=== PATIENT | male | born 1950 | race Caucasian/White ===

== ENCOUNTER 2017-06-19 00:36 | Emergency (ER) | payer MEDICARE, BC ==
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
--- NOTE | 2017-06-20 08:34 | CR ---
Abdomen: Upright view of the abdomen was obtained. Comparison: No prior abdominal x-ray. Scattered gas is noted within colon and within nondilated small bowel. Several air-fluid levels scattered within small bowel. This bowel pattern is felt to be incidental. Degenerative endplate spurring is noted within the spine. Heart is mildly enlarged. No free air is seen. Calcifications are identified within the pelvis which are compatible with phleboliths. Impression: 1. Nonspecific upright abdominal x-ray with incidental findings as noted above. Diagnostic code #2
--- NOTE | 2017-06-20 08:34 | CR ---
Chest: Two views of the chest were obtained. Comparison: Prior chest x-ray of 11/29/12. Heart is enlarged. AICD is present. Lungs are clear with no acute infiltrates. Mild chronic change is seen within the lungs. Bony structures show nothing acute. Mild degenerative change is noted within the spine. Impression: 1. Incidental findings as noted above. Nothing acute is identified. Diagnostic code #2
== END 2017-06-19 03:13 | disposition home or self-care (01) ==
LOC: JD.ED 00:36
DX: F45.8 Other somatoform disorders (principal); F41.9 Anxiety disorder, unspecified; I11.0 Hypertensive heart disease with heart failure; I50.9 Heart failure, unspecified; E78.00 Pure hypercholesterolemia, unspecified; I48.91 Unspecified atrial fibrillation; K21.9 Gastro-esophageal reflux disease without esophagitis; Z88.8 Allergy status to other drugs, medicaments and biological substances; Z79.899 Other long term (current) drug therapy
CPT/HCPCS: 36415; 36600; 71020; 71020-26; 74000; 74000-26; 80053; 82803; 83735; 84484; 85025; 85379; 85610; 93005; 93010; 99284; 99285-25